=== PATIENT | male | born 1955 | race Caucasian/White ===

== ENCOUNTER 2017-03-14 09:59 | Observation (INO) | payer BC ==
[2017-03-14] MEDS ORDERED: ASPIRIN 81 MG TABLET, CHEWABLE PO ONE (10:03)
--- NOTE | 2017-03-14 10:20 | ER Document Report ---
ED Medical Screen (RME) - General Chief Complaint: Chest Pain > 30 Stated Complaint: CHEST PAIN Time Seen by Provider: 03/14/17 10:17 Notes: Patient presents with right-sided chest pain as well as right shoulder and right arm pain. He was sent here from urgent care. He states that urgent care did do a chest x-ray and told him that it was negative, however he did not bring a report with him. Patient states he has had previous myocardial infarctions and has 5 stents. He states that he has a lot of pain on the right side of his chest and is unable to lay on the right side. TRAVEL OUTSIDE OF THE [place] IN LAST 30 DAYS: No - Related Data Allergies/Adverse Reactions: iodine Allergy (Verified 03/14/17 10:00) Iodine and Iodide Containing Produc Allergy (Verified 03/14/17 10:00) Past Medical History Renal/ Medical History: Denies: Hx Peritoneal Dialysis Physical Exam - Vital signs Vitals: Temp Pulse Resp BP Pulse Ox 98.4 F 100 16 141/93 H 96 03/14/17 10:03/14/17 10:03/14/17 10:03/14/17 10:04 03/14/17 10:04 Course - Vital Signs Vital signs: Temp Pulse Resp BP Pulse Ox 98.4 F 100 16 141/93 H 96 03/14/17 10:03/14/17 10:03/14/17 10:03/14/17 10:04 03/14/17 10:04
[2017-03-14 10:45] LABS: ABSOLUTE BASOPHILS # (AUTO) 0.1 10^3/uL (0.0-0.2); ABSOLUTE EOSINOPHILS # (AUTO) 0.1 10^3/uL (0.0-0.6); ABSOLUTE LYMPHOCYTES (AUTO) 1.8 10^3/uL (0.5-4.7); ABSOLUTE MONOCYTES (AUTO) 1.6 10^3/uL (0.1-1.4); ABSOLUTE NEUT (AUTO) 7.8 10^3/uL (1.7-8.2); BASOPHILS % (AUTO) 0.6 % (0-2); EOSINOPHILS % (AUTO) 0.7 % (0-6); HEMOGLOBIN 15.2 g/dL (13.5-17.0); HGB HCT DIFFERENCE 0.6; LYMPHOCYTES % (AUTO) 15.8 % (13-45); MEAN CORPUSCULAR HEMOGLOBIN 32.4 pg (27.0-33.4); MEAN CORPUSCULAR HGB CONC 33.7 g/dL (32.0-36.0); MEAN CORPUSCULAR VOLUME 96 fl (80-97); MONOCYTES % (AUTO) 14.4 % (3-13); RED BLOOD COUNT 4.69 10^6/uL (4.35-5.55); RED CELL DISTRIBUTION WIDTH 13.7 % (11.5-14.0); SEGMENTED NEUTROPHILS % (AUTO) 68.5 % (42-78); WHITE BLOOD COUNT 11.3 10^3/uL (4.0-10.5)
--- NOTE | 2017-03-14 10:52 | ER Document Report ---
ED General - General Chief Complaint: Chest Pain > 30 Stated Complaint: CHEST PAIN Time Seen by Provider: 03/14/17 10:17 Mode of Arrival: Ambulatory Information source: Patient Notes: 61-year-old male history of hypertension hyperlipidemia coronary artery disease with 5 stents presents with complaints of chest pain. Patient notes it is right -sided main down the right arm intermittently over the past 4 days. Patient notes he is ALSO having pain in his right neck. Patient also admits that his uvula feels swollen but this happens often to him. Patient denies any fevers or chills notes nausea and vomiting only when his uvula swells TRAVEL OUTSIDE OF THE [place] IN LAST 30 DAYS: No - HPI Onset: Last week Onset/Duration: Sudden, Intermittent Quality of pain: Achy Severity: Mild Pain Level: 1 Associated symptoms: Chest pain, Nausea, Vomiting Exacerbated by: Denies Relieved by: Denies Similar symptoms previously: Yes Recently seen / treated by doctor: Yes - Related Data Allergies/Adverse Reactions: iodine Allergy (Verified 03/14/17 10:00) Iodine and Iodide Containing Produc Allergy (Verified 03/14/17 10:00) Past Medical History - Social History Smoking Status: Current Every Day Smoker Cigarette use (# per day): Yes Chew tobacco use (# tins/day): No Smoking Education Provided: No Frequency of alcohol use: Rare Drug Abuse: None Family History: Reviewed & Not Pertinent Patient has suicidal ideation: No Patient has homicidal ideation: No - Past Medical History Cardiac Medical History: Reports: Hx Hypercholesterolemia, Hx Hypertension Endocrine Medical History: Reports: Hx Diabetes Mellitus Type 2 Renal/ Medical History: Denies: Hx Peritoneal Dialysis - Immunizations Hx Diphtheria, Pertussis, Tetanus Vaccination: Yes Review of Systems - Review of Systems Notes: REVIEW OF SYSTEMS: CONSTITUTIONAL : Denies fever, chills, or sweats. Denies recent illness. EENT: Admits to uvula swelling CARDIOVASCULAR: Admits to chest pain RESPIRATORY: Denies cough, cold, or chest congestion. Denies shortness of breath, difficulty breathing, or wheezing. GASTROINTESTINAL: Denies abdominal pain or distention. Denies nausea, vomiting , or diarrhea. Denies blood in vomitus, stools, or per rectum. Denies black, tarry stools. Denies constipation. GENITOURINARY: Denies difficulty urinating, painful urination, burning, frequency, blood in urine, or discharge. MUSCULOSKELETAL: Denies back or neck pain or stiffness. Denies joint pain or swelling. SKIN: Denies rash, lesions or sores. HEMATOLOGIC : Denies easy bruising or bleeding. LYMPHATIC: Denies swollen, enlarged glands. NEUROLOGICAL: Denies confusion or altered mental status. Denies passing out or loss of consciousness. Denies dizziness or lightheadedness. Denies headache. Denies weakness or paralysis or loss of use of either side. Denies problems with gait or speech. Denies sensory loss, numbness, or tingling. Denies seizures. PSYCHIATRIC: Denies anxiety or stress. Denies depression, suicidal ideation, or homicidal ideation. ALL OTHER SYSTEMS REVIEWED AND NEGATIVE. Dictation was performed using Synchro voice recognition software PHYSICAL EXAMINATION: GENERAL: Well-appearing, well-nourished and in no acute distress. HEAD: Atraumatic, normocephalic. EYES: Pupils equal round and reactive to light, extraocular movements intact, sclera anicteric, conjunctiva are normal. ENT: Mild uvular edema NECK: Normal range of motion, supple without lymphadenopathy LUNGS: Breath sounds clear to auscultation bilaterally and equal. No wheezes rales or rhonchi. HEART: Regular rate and rhythm without murmurs ABDOMEN: Soft, nontender, nondistended abdomen. No guarding, no rebound. No masses appreciated. Musculoskeletal: Normal range of motion, no pitting or edema. No cyanosis. NEUROLOGICAL: Cranial nerves grossly intact. Normal speech, normal gait. Normal sensory, motor exams PSYCH: Normal mood, normal affect. SKIN: Warm, Dry, normal turgor, no rashes or lesions noted. Physical Exam - Vital signs Vitals: Temp Pulse Resp BP Pulse Ox 98.4 F 100 16 141/93 H 96 03/14/17 10:04 03/14/17 10:04 03/14/17 10:04 03/14/17 10:04 03/14/17 10:04 Course - Re-evaluation Re-evalutation: 03/14/17 12:37 Lab work noted no significant abnormality, given patient's extensive cardiac history I do believe observation is appropriate. CTA has been ordered and will be admitted to the hospitalist service - Vital Signs Vital signs: Temp Pulse Resp BP Pulse Ox 98.4 F 100 22 H 120/82 95 03/14/17 10:04 03/14/17 10:04 03/14/17 12:01 03/14/17 12:01 03/14/17 12:01 - Laboratory Result Diagrams: 03/14/17 10:26 03/14/17 10:26 Laboratory results interpreted by me: 03/14/17 10:26 WBC 11.3 H Monocytes % 14.4 H Absolute Monocytes 1.6 H - Diagnostic Test Radiology reviewed: Image reviewed - No acute abnormality, Reports reviewed - EKG Interpretation by Me EKG shows normal: Sinus rhythm, [place], Intervals, QRS Complexes Discharge - Discharge Clinical Impression: Uvular edema Chest pain Qualifiers: Chest pain type: unspecified Qualified Code(s): R07.9 - Chest pain, unspecified CAD (coronary artery disease) Qualifiers: Coronary Disease-Associated Artery/Lesion type: unspecified vessel or lesion type [place] vs. transplanted heart: unspecified whether [place] or transplanted heart Associated angina: without angina Qualified Code(s): I25.10 - Atherosclerotic heart disease of [place] coronary artery without angina pectoris Unit Admitted: Telemetry
[2017-03-14 11:00] LABS: ALANINE AMINOTRANSFERASE 31 U/L (21-72); ALBUMIN 4.4 g/dL (3.5-5.0); ALKALINE PHOSPHATASE 94 U/L (38-126); ANION GAP 13 (5-19); ASPARTATE AMINO TRANSFERASE 23 U/L (17-59); BILIRUBIN,DIRECT 0.3 mg/dL (0.0-0.4); BILIRUBIN,TOTAL 0.9 mg/dL (0.2-1.3); BLOOD UREA NITROGEN 14 mg/dL (7-20); CALCIUM 9.7 mg/dL (8.4-10.2); CARBON DIOXIDE 23 mmol/L (22-30); CHLORIDE 107 mmol/L (98-107); CREATININE RESULT 0.82 mg/dL (0.52-1.25); GLUCOSE 107 mg/dL (75-110); POTASSIUM 4.3 mmol/L (3.6-5.0); SODIUM 142.8 mmol/L (137-145); TOTAL PROTEIN 7.5 g/dL (6.3-8.2)
[2017-03-14] MEDS ORDERED: PREDNISONE 20 MG TABLET PO ONE (11:53)
[2017-03-14] MEDS ORDERED: DIPHENHYDRAMINE HCL 50 MG CAPSULE PO ONE (11:53)
[2017-03-14] MEDS ORDERED: ONDANSETRON 4 MG TAB.RAPDIS PO PRN (12:38)
[2017-03-14] MEDS ORDERED: IPRATROPIUM/ALBUTEROL 0.5-2.5 MG/3 ML AMPUL NEB PRN (12:38)
[2017-03-14] MEDS ORDERED: ACETAMINOPHEN 325 MG TABLET PO PRN (12:38)
[2017-03-14] MEDS ORDERED: ONDANSETRON HCL INJ/PF 4 MG/2 ML SDV IV PRN (12:38)
[2017-03-14] MEDS ORDERED: DEXTROSE 50%-WATER 25 GM/50 ML DISP.SYRIN IV PRN ×2 (12:42)
[2017-03-14] MEDS ORDERED: GLUCAGON,HUMAN RECOMB 1 MG INJ IM PRN (12:42)
[2017-03-14] MEDS ORDERED: DEXTROSE 40% GEL 15 GM TUBE PO PRN ×2 (12:42)
--- NOTE | 2017-03-14 12:57 | PDOC H&P ---
History of Present Illness Admission Date/PCP: 03/14/17 12:20 BECKY MARES MD Patient complains of: Right sided chest pain 4 days. History of Present Illness: SOTO MOJICA is a 61 year old male history of coronary artery disease normally followed by Dr. Norris. That he has had a sharp right-sided chest pain in the right subclavicular area. It is reproducible pain. He reports it does radiate down to his right arm. He also has had some pain in his neck by his report. It is unrelated to exertion. It is a 5 out of 10 at its worst. He reports that if he puts pressure on the area does feel somewhat better. He reports that it was relieved when he took a baby aspirin today. He is currently pain- free. He has been under a great deal of stress with his [id number] has been very ill and have been going back and forth to the hospital in [place]. Patient reports that it is not worse with exertion. He denies having any orthopnea or PND. He does take aspirin and Plavix for his known coronary artery disease but reports the pain is different than that. He also has had some nausea and occasional vomiting over the last several days. He is noted to have swelling of the uvula and has received steroids in the emergency room. He has never taken an CRESENCIO inhibitor before. Past Medical History Cardiac Medical History: Reports: Coronary Artery Disease, Hyperlipidema, Hypertension Pulmonary Medical History: Reports: None EENT Medical History: Reports: None Neurological Medical History: Reports: None Endocrine Medical History: Reports: Diabetes Mellitus Type 2 Renal/ Medical History: Reports: None Malignancy Medical History: Reports: None GI Medical History: Reports: None Skin Medical History: Reports: None Psychiatric Medical History: Reports: None Traumatic Medical History: Reports: None Hematology: Reports: None Infectious Medical History: Reports: None Past Surgical History Past Surgical History: Reports: Cardiac Catheterization - Currently has [address] Social History Information Source: Patient Lives with: Family Smoking Status: Current Every Day Smoker Frequency of Alcohol Use: Rare Hx Recreational Drug Use: No Drugs: None Hx Prescription Drug Abuse: No - Advance Directive Resuscitation Status: Full Code Surrogate healthcare decision maker:: Family History Family History: Father at age 42 after having an automobile accident when he had a heart attack. Mother in her late 60s of COPD and a brain aneurysm that ruptured Parental Family History Reviewed: Yes Children Family History Reviewed: No Sibling(s) Family History Reviewed.: No Medication/Allergy Allergies/Adverse Reactions: iodine Allergy (Verified 03/14/17 10:00) Iodine and Iodide Containing Produc Allergy (Verified 03/14/17 10:00) Review of Systems Constitutional: ABSENT: chills, fever(s), headache(s), weight gain, weight loss Eyes: ABSENT: visual disturbances Cardiovascular: PRESENT: as per HPI. ABSENT: dyspnea on exertion, edema, orthropnea, palpitations Respiratory: ABSENT: cough, hemoptysis Gastrointestinal: ABSENT: abdominal pain, constipation, diarrhea, hematemesis, hematochezia, nausea, vomiting Genitourinary: ABSENT: dysuria, hematuria Musculoskeletal: PRESENT: other - Reducible pain with palpation of the right subclavicular area Integumentary: ABSENT: rash, wounds Neurological: ABSENT: abnormal gait, abnormal speech, confusion, dizziness, focal weakness, syncope Psychiatric: ABSENT: anxiety, depression Endocrine: ABSENT: cold intolerance, heat intolerance, polydipsia, polyuria Hematologic/Lymphatic: ABSENT: easy bleeding, easy bruising Physical Exam Vital Signs: Temp Pulse Resp BP Pulse Ox 98.4 F 100 22 H 120/82 95 03/14/17 10:04 03/14/17 10:04 03/14/17 12:01 03/14/17 12:01 03/14/17 12:01 General appearance: PRESENT: no acute distress, well-developed, well-nourished Head exam: PRESENT: atraumatic, normocephalic Eye exam: PRESENT: conjunctiva pink, EOMI, PERRLA. ABSENT: scleral icterus Ear exam: PRESENT: normal external ear exam Mouth exam: PRESENT: moist, tongue midline, other - Uvula is slightly enlarged. Neck exam: ABSENT: carotid bruit, JVD, lymphadenopathy, thyromegaly Respiratory exam: PRESENT: chest wall tenderness - The right subclavicular area tender to palpation., clear to auscultation caryn. ABSENT: rales, rhonchi, wheezes Cardiovascular exam: PRESENT: RRR. ABSENT: diastolic murmur, rubs, systolic murmur Pulses: PRESENT: normal dorsalis pedis pul Vascular exam: PRESENT: normal capillary refill GI/Abdominal exam: PRESENT: normal bowel sounds, soft. ABSENT: distended, guarding, mass, organolmegaly, rebound, tenderness Extremities exam: ABSENT: calf tenderness, clubbing, pedal edema Neurological exam: PRESENT: alert, awake, oriented to person, oriented to place , oriented to time, oriented to situation, CN II-XII grossly intact. ABSENT: motor sensory deficit Psychiatric exam: PRESENT: appropriate affect Skin exam: PRESENT: dry, intact, warm. ABSENT: cyanosis, rash Assessment & Plan - Diagnosis (1) Chest pain Qualifiers: Chest pain type: unspecified Qualified Code(s): R07.9 - Chest pain, unspecified Is this a current diagnosis for this admission?: YesPlan: The patient's pain is atypical. It is reproducible with palpation of the right chest wall. This most likely represents costochondritis. The ER physician has ordered a chest CT angiogram. Will monitor on telemetry overnight and check serial cardiac enzymes. If his enzymes are negative we will plan on discharging home and have him follow-up with his complex case manager as an outpatient. (2) CAD (coronary artery disease) Qualifiers: Coronary Disease-Associated Artery/Lesion type: unspecified vessel or lesion type [place] vs. transplanted heart: unspecified whether [place] or transplanted heart Associated angina: without angina Qualified Code(s): I25.10 - Atherosclerotic heart disease of [place] coronary artery without angina pectoris Is this a current diagnosis for this admission?: YesPlan: Patient's pain is different from his usual cardiac pain by his report. Will continue with the aspirin and Plavix. (3) Hypertension Is this a current diagnosis for this admission?: YesPlan: Blood pressures currently under good control. (4) Dyslipidemia Is this a current diagnosis for this admission?: YesPlan: We will continue with his outpatient statin (5) Diabetes Is this a current diagnosis for this admission?: YesPlan: Hold the metformin and cover with sliding scale insulin per (6) Uvular edema Is this a current diagnosis for this admission?: YesPlan: Has received a dose of prednisone in the emergency room. Will hold off on any more steroids unless he has more problems. He has not been on an CRESENCIO inhibitor - Time Time Spent: 50 to 70 Minutes - Plan Summary Plan Summary: Patient will be admitted as an observation. I anticipate he will be able to be discharged home.
--- NOTE | 2017-03-14 13:04 | RADIOLOGY REPORT (SQ) ---
EXAM DESCRIPTION: CTA CHEST COMPLETED DATE/TIME: 03/14/2017 12:49 pm REASON FOR STUDY: chest pain COMPARISON: None. TECHNIQUE: CT scan of the chest performed using helical scanning technique with dynamic intravenous contrast injection. Images reviewed with lung, soft tissue and bone windows. Reconstructed coronal and sagittal MPR images reviewed. Additional 3 dimensional post-processing performed to develop Maximal Intensity Projection images (NH P). All images stored on PACS. All CT scanners at this facility use dose modulation, iterative reconstruction, and/or weight based d osing when appropriate to reduce radiation dose to as low as reasonably achievable (ALARA). [facility]: Dose Right [facility]: CareDose [facility]: Dose Right [facility]: Teradose 4D [facility]: EncrypTix CONTRAST TYPE AND DOSE: contrast/concentration: Isovue 370.00 mg/ml; Total Contrast Delivered: 69.0 ml; Total Saline Delivered: 110.1 ml RENAL FUNCTION: BUN 14 creatinine 0.82. RADIATION DOSE: Up-to-date CT equipment and radiation dose reduction techniques were employed. CTDIv ol: 7.5 - 13.0 mGy. DLP: 507 mGy-cm. . LIMITATIONS: None. FINDINGS: LUNGS AND PLEURA: No masses, infiltrates, pneumothorax. No pleural effusions, calcificati ons. AORTA AND GREAT VESSELS: No aneurysm or dissection. HEART: No pericardial effusion. PULMONARY ARTERIES: No emboli visualized in the main pulmonary arteries or the segmental branches. HILAR AND MEDIASTINAL STRUCTURES: No identified masses or abnormal nodes. HARDWARE: None in the chest. UPPER ABDOMEN: No significant findings. Limited exam. THYROID AND OTHER SOFT TISSUES: No masses. No adenopathy. BONES: No acute or significant finding. 3D MIPS: Confirm above findings. OTHER: No other significant finding. IMPRESSION: NORMAL CTA OF THE CHEST. NO PULMONARY EMBOLI. TECHNICAL DOCUMENTATION: JOB ID: [id number] Quality ID # [id number]: Final reports with documentation of one or more dose reduction techniques (e.g., Au tomated exposure control, adjustment of the mA and/or kV according to patient size, use of iterative reconstruction technique) 2010 [email or web address]- All Rights Reserved
[2017-03-14 14:24] LABS: CREATINE KINASE MB 0.33 ng/mL (<4.55)
[2017-03-14 14:31] LABS: TROPONIN I < 0.012 ng/mL
[2017-03-14] MEDS: INSULIN LISPRO 100 UNIT/ML 3 ML VIAL SUBCUT PRN ×2 (17:50→22:28)
--- NOTE | 2017-03-14 18:20 | EKG REPORT ---
SEVERITY:- BORDERLINE ECG - SINUS RHYTHM CONSIDER ANTERIOR INFARCT BORDERLINE T WAVE ABNORMALITIES : Confirmed by: Luciano Parekh MD 14-Mar-2017 18:18:57
[2017-03-14 19:44] LABS: CREATINE KINASE MB 0.36 ng/mL (<4.55)
[2017-03-14 19:48] LABS: TROPONIN I < 0.012 ng/mL
[2017-03-15 01:45] LABS: CREATINE KINASE MB 0.43 ng/mL (<4.55)
[2017-03-15 01:50] LABS: TROPONIN I < 0.012 ng/mL
[2017-03-15 05:53] LABS: HEMATOCRIT 40.2 % (37.9-51.0); HEMOGLOBIN 13.5 g/dL (13.5-17.0); HGB HCT DIFFERENCE 0.3; MEAN CORPUSCULAR HEMOGLOBIN 32.4 pg (27.0-33.4); MEAN CORPUSCULAR HGB CONC 33.5 g/dL (32.0-36.0); MEAN CORPUSCULAR VOLUME 97 fl (80-97); RED BLOOD COUNT 4.16 10^6/uL (4.35-5.55); RED CELL DISTRIBUTION WIDTH 13.4 % (11.5-14.0); WHITE BLOOD COUNT 12.8 10^3/uL (4.0-10.5)
[2017-03-15 05:59] LABS: ANION GAP 10 (5-19); BLOOD UREA NITROGEN 19 mg/dL (7-20); CALCIUM 9.2 mg/dL (8.4-10.2); CARBON DIOXIDE 21 mmol/L (22-30); CHLORIDE 110 mmol/L (98-107); CREATININE RESULT 0.78 mg/dL (0.52-1.25); GLUCOSE 109 mg/dL (75-110); POTASSIUM 4.2 mmol/L (3.6-5.0); SODIUM 140.5 mmol/L (137-145)
[2017-03-15 10:43] VITALS: BP 144/80
--- NOTE | 2017-03-15 11:19 | PDOC DISCHARGE SUMMARY ---
General - Admit/Disc Date/PCP Admission Date/Primary Care Provider: 03/14/17 12:39 BECKY MARES MD Discharge Date: 03/15/17 - Discharge Diagnosis (1) Chest pain Is this a current diagnosis for this admission?: YesSummary: Cardiac enzymes. Symptoms suggestive of costochondritis as the cause. (2) CAD (coronary artery disease) Is this a current diagnosis for this admission?: Yes (3) Hypertension Is this a current diagnosis for this admission?: Yes (4) Dyslipidemia Is this a current diagnosis for this admission?: Yes (5) Diabetes Is this a current diagnosis for this admission?: Yes (6) Uvular edema Is this a current diagnosis for this admission?: YesSummary: He received 1 dose of prednisone in the emergency room. Has had resolution of symptoms. - Additional Information Resuscitation Status: Full Code Discharge Diet: Cardiac Discharge Activity: Activity As Tolerated Home Medications: Aspirin [Aspirin 81 mg Chewable Tablet] 81 mg PO DAILY 03/15/17 Atorvastatin Calcium 40 mg PO DAILY 03/15/17 Clopidogrel Bisulfate [Plavix 75 mg Tablet] 75 mg PO DAILY 03/15/17 Fosinopril Sodium [Monopril] 10 mg PO DAILY 03/15/17 History of Present Illness History of Present Illness: STOO MOJICA is a 61 year old male history of coronary artery disease normally followed by Dr. Norris. That he has had a sharp right-sided chest pain in the right subclavicular area. It is reproducible pain. He reports it does radiate down to his right arm. He also has had some pain in his neck by his report. It is unrelated to exertion. It is a 5 out of 10 at its worst. He reports that if he puts pressure on the area does feel somewhat better. He reports that it was relieved when he took a baby aspirin today. He is currently pain- free. He has been under a great deal of stress with his [id number] has been very ill and have been going back and forth to the hospital in [place]. Patient reports that it is not worse with exertion. He denies having any orthopnea or PND. He does take aspirin and Plavix for his known coronary artery disease but reports the pain is different than that. He also has had some nausea and occasional vomiting over the last several days. He is noted to have swelling of the uvula and has received steroids in the emergency room. He has never taken an CRESENCIO inhibitor before. Hospital Course Hospital Course: 61-year-old gentleman with known coronary artery disease who presented with some atypical chest pain that was suggestive of costochondritis. Patient's pain was reproducible with palpation of the right rib cage. The patient was monitored on telemetry and had negative cardiac enzymes. The patient had no further cardiac workup will follow up with his outpatient catia designer. Patient also was noted to have uvula edema and received prednisone 1 in the emergency room with resolution of symptoms. Physical Exam Vital Signs: Temp Pulse Resp BP Pulse Ox 97.7 F 73 18 144/80 H 97 03/15/17 07:27 03/15/17 08:38 03/15/17 08:38 03/15/17 07:27 03/15/17 08:38 Intake & Output 03/14/17 03/15/17 03/16/17 06:59 06:59 06:59 Intake Total 705 Output Total 425 Balance 280 Weight 87.1 kg General appearance: PRESENT: no acute distress, well-developed, well-nourished Eye exam: PRESENT: conjunctiva pink. ABSENT: scleral icterus Neck exam: ABSENT: carotid bruit, JVD, lymphadenopathy, thyromegaly Respiratory exam: PRESENT: clear to auscultation caryn. ABSENT: rales, rhonchi, wheezes Cardiovascular exam: PRESENT: RRR. ABSENT: diastolic murmur, rubs, systolic murmur GI/Abdominal exam: PRESENT: normal bowel sounds, soft. ABSENT: distended, guarding, mass, organolmegaly, rebound, tenderness Extremities exam: ABSENT: calf tenderness, clubbing, pedal edema Neurological exam: PRESENT: alert, awake, oriented to person, oriented to place , oriented to time, oriented to situation, CN II-XII grossly intact. ABSENT: motor sensory deficit Psychiatric exam: PRESENT: appropriate affect Skin exam: PRESENT: dry, intact, warm. ABSENT: cyanosis, rash Results Laboratory Results: 03/15/17 05:38 03/15/17 05:38 03/15/17 03/15/17 05:38 05:38 WBC 12.8 H RBC 4.16 L Hgb 13.5 Hct 40.2 MCV 97 MCH 32.4 MCHC 33.5 RDW 13.4 Plt Count 244 Sodium 140.5 Potassium 4.2 Chloride 110 H Carbon Dioxide 21 L Anion Gap 10 BUN 19 Creatinine 0.78 Est GFR ( Amer) > 60 Est GFR (Non-Af Amer) > 60 Glucose 109 Calcium 9.2 03/14/17 03/14/17 03/14/17 13:25 13:25 18:40 Creatine Kinase 107 107 CK-MB (CK-2) 0.33 Troponin I < 0.012 03/14/17 03/15/17 03/15/17 18:40 00:56 00:56 Creatine Kinase 96 CK-MB (CK-2) 0.36 0.43 Troponin I < 0.012 < 0.012 Impressions: Chest/Abdomen CTA 03/14/17 11:46 IMPRESSION: NORMAL CTA OF THE CHEST. NO PULMONARY EMBOLI. Qualifiers PATEINT BEING DISCHARGED WITH ANY OF THE FOLLOWING DIAGNOSIS?: No Plan Discharge Plan: Follow-up with cardiology in 1 week. Follow up with primary care doctor in 2 weeks. Is to stop the Monopril. Time Spent: Less than 30 Minutes
== END 2017-03-15 12:37 | disposition home or self-care (01) ==
LOC: ER 09:59 → UNDOADMOB 12:20 → EH 12:20 → 4S 13:59
PROVIDERS: ADMIT Family Medicine; ATTEND Family Medicine
DX: R07.89 Other chest pain (principal); I25.10 Atherosclerotic heart disease of native coronary artery without angina pectoris; I10 Essential (primary) hypertension; E78.5 Hyperlipidemia, unspecified; E11.9 Type 2 diabetes mellitus without complications; R60.9 Edema, unspecified; R11.2 Nausea with vomiting, unspecified; F17.210 Nicotine dependence, cigarettes, uncomplicated; M25.511 Pain in right shoulder; M79.601 Pain in right arm; I25.2 Old myocardial infarction; Z79.82 Long term (current) use of aspirin; Z79.02 Long term (current) use of antithrombotics/antiplatelets; Z63.79 Other stressful life events affecting family and household; Z95.5 Presence of coronary angioplasty implant and graft; Z82.49 Family history of ischemic heart disease and other diseases of the circulatory system; Z82.5 Family history of asthma and other chronic lower respiratory diseases; Z88.8 Allergy status to other drugs, medicaments and biological substances
CPT/HCPCS: 93005; 99285; 36415 ×2; 82553 ×2; 82962 ×2; 82550 ×2; 85025; 85027; 80048; 80053; 84484 ×2; 71275; 93010; G0378 ×3; J1815; J7512; J3490

== ENCOUNTER 2018-04-13 07:43 | Day surgery (SDC) | payer BC ==
[~2018-04-13 07:43] MED LIST: DIPHENHYDRAMINE HCL 50 MG/ML VIAL ONE; EPINEPHRINE INJ 1 MG/10 ML DISP.SYRIN ONE; FENTANYL CITRATE INJ/PF 100 MCG/2 ML AMPUL ONE; FLUMAZENIL INJ 0.5 MG/5 ML VIAL ONE; GLUCAGON,HUMAN RECOMB 1 MG INJ ONE; NALOXONE HCL INJ/PF 0.4 MG/1 ML SDV ONE; ONDANSETRON HCL INJ/PF 4 MG/2 ML SDV ONE
[2018-04-13] MEDS: MIDAZOLAM 2 MG/2 ML INJ ONE ×2 (08:46→08:50)
[2018-04-13 10:18] VITALS: BP 100/72
--- NOTE | 2018-04-13 12:26 | Operative Report ---
Operative Report DATE OF SURGERY: 04/13/18 Operative Report: The risks, benefits and alternatives of the procedure including the risk of bleeding, perforation requiring surgery are explained to the patient in detail and informed consent was obtained. The patient is brought back to the endoscopy unit and placed in the left, lateral decubital position. Timeout was called. Conscious sedation medications are provided. A rectal examination is done which did not reveal any masses, tears or fissures. An Olympus videoscope was inserted into the patient's rectum. The scope was then carefully advanced all the way to the cecum. Cecum was identified by the usual anatomical landmarks of the ileocecal valve as well as the appendiceal office. However prep is not good. There is solid fecal material in the right side of the colon. The scope was then sequentially pulled back via the various segments of the colon including the ascending colon, hepatic flexure, transverse colon, splenic flexure, descending colon and finally into the rectosigmoid portions of the colon. Retroflexion maneuvers performed. The risks benefits and alternatives of the procedure explained to the patient in detail and informed consent is obtained .A GIF Olympus video scope was inserted into the patient's mouth and hypopharynx /the esophagus is identified intubated and insufflated. the scope was then advanced through the esophagus stomach and duodenum ,retroflexion maneuver is done, the esophagus stomach and first and second portions of the duodenum examined PREOPERATIVE DIAGNOSIS: Noncardiac chest pain. Colorectal cancer screening POSTOPERATIVE DIAGNOSIS: Gastritis status post biopsy rule out Helicobacter pylori. Mild inflammation noted on the right side of the colon status post biopsy. Internal hemorrhoids. Diverticulosis OPERATION: Colonoscopy with biopsy. EGD with biopsy SURGEON: ADRIANA SILVERIO ANESTHESIA: Moderate Sedation - 4 mg of Versed, 100 mcg of fentanyl. Conscious sedation monitoring time 30 minutes. TISSUE REMOVED OR ALTERED: As noted above. COMPLICATIONS: None. ESTIMATED BLOOD LOSS: None. INTRAOPERATIVE FINDINGS: As noted above. PROCEDURE: Patient tolerated procedure well. No immediate postprocedure complications are noted. Patient discharged in good condition. Discharge date 04/13/2019. Discharge diet: Regular. Discharge activity: Regular. 2-3 week follow-up to discuss findings. Patient is instructed to call the office or proceed to the emergency room should there be any further problems or questions. Due to the inadequate prep I would bring the patient back in 5 years for repeat colonoscopy
== END 2018-04-13 10:10 | disposition home or self-care (01) ==
LOC: END 07:43
PROVIDERS: ATTEND Internal Medicine Gastroenterology
DX: Z12.11 Encounter for screening for malignant neoplasm of colon (principal); K52.9 Noninfective gastroenteritis and colitis, unspecified; K64.8 Other hemorrhoids; K57.30 Diverticulosis of large intestine without perforation or abscess without bleeding; E11.9 Type 2 diabetes mellitus without complications; K29.60 Other gastritis without bleeding; R07.89 Other chest pain; E78.5 Hyperlipidemia, unspecified; I10 Essential (primary) hypertension; I25.10 Atherosclerotic heart disease of native coronary artery without angina pectoris; K44.9 Diaphragmatic hernia without obstruction or gangrene; K21.9 Gastro-esophageal reflux disease without esophagitis; E55.9 Vitamin D deficiency, unspecified; Z79.899 Other long term (current) drug therapy; Z79.84 Long term (current) use of oral hypoglycemic drugs
CPT/HCPCS: 43239; 45380; 82962; 88342 ×2; 88305 ×2; J2250; J3010; J0171; J1200; J1610; J2310; J2405; J3490